=== PATIENT | female | born 1970 | race Caucasian/White ===

== ENCOUNTER 2016-12-28 13:21 | Emergency (ER) | payer MEDICAID ==
[~2016-12-28] VITALS: Ht 160 cm; Wt 85.5 kg
[2016-12-28] MEDS ORDERED: SOY155CA PO (13:53)
[2016-12-28] MEDS ORDERED: SODIUM CHLORIDE FLUSH 10ML SYR IVF ONE (14:00)
[2016-12-28] MEDS ORDERED: ONDANSETRON 2MG/ML, 2ML IVPush ONE (14:00)
[2016-12-28] MEDS ORDERED: SODIUM CHLORIDE 0.9% 1,000ML IVBOLUS ONE (14:00)
[2016-12-28] MEDS ORDERED: ONDANSETRON 2MG/ML, 2ML ONE (14:13)
[2016-12-28] MEDS ORDERED: KETOROLAC 30 MG/1 ML ONE (14:13)
[2016-12-28 14:27] LABS: ASPARTATE AMINO TRANSFERASE 22 U/L (15-37); BLOOD UREA NITROGEN 15 mg/dL (7-18)
[2016-12-28 15:13] LABS: PATH.CAST-FLAG NOT PRESENT; SPERM-FLAG NOT PRESENT; SRC-FLAG NOT PRESENT; XTAL-FLAG NOT PRESENT; YLC-FLAG NOT PRESENT
[2016-12-28] MEDS ORDERED: KETOROLAC 30 MG/1 ML IVPush ONE (15:30)
[2016-12-28 15:52] VITALS: BP 132/84
== END 2016-12-28 15:55 | disposition home or self-care (01) ==
LOC: ED 15:49
DX: N30.90 Cystitis, unspecified without hematuria (principal); R20.9 Unspecified disturbances of skin sensation; R68.83 Chills (without fever); Z90.710 Acquired absence of both cervix and uterus; Z98.51 Tubal ligation status; Z87.891 Personal history of nicotine dependence
CPT/HCPCS: 36415; 80053; 81001; 84439; 84443; 85025; 87086; 93005; 96361; 96374; 96375; 99285; J1885; J2405; J7030

== ENCOUNTER 2019-10-14 06:40 | Emergency (ER) | payer MEDICAID ==
[~2019-10-14] VITALS: Ht 160 cm; Wt 81.2 kg
[~2019-10-14 06:40] MED LIST: SOY155CA PO
[2019-10-14 06:44] VITALS: BP 185/89
[2019-10-14] MEDS ORDERED: KETOROLAC 30 MG/1 ML IM ONE (07:30)
[2019-10-14] MEDS ORDERED: DIAZEPAM 5 MG TABLET PO ONE (07:30)
[2019-10-14] MEDS ORDERED: DIAZEPAM 5 MG TABLET ONE (07:46)
[2019-10-14] MEDS ORDERED: KETOROLAC 30 MG/1 ML ONE (07:46)
--- NOTE | 2019-10-14 07:49 | NUR ---
MEDICATED FOR RIGHT SHOULDER PAIN
[2019-10-14] MEDS ORDERED: OXYcodone/APAP 5/325MG TABLET ONE (08:53)
[2019-10-14] MEDS ORDERED: OXYcodone/APAP 5/325MG TABLET PO ONE (09:00)
--- NOTE | 2019-10-14 09:23 | NUR ---
SOME IMPROVEMENT OF PAIN WITH MEDS AND SLING. PT GIVEN DISCHARGE AND AMBULATED TO DISCHARGE WINDOW, STEADY GAIT
== END 2019-10-14 09:26 | disposition home or self-care (01) ==
LOC: ED 09:15
DX: M25.511 Pain in right shoulder (principal); Z90.710 Acquired absence of both cervix and uterus
CPT/HCPCS: 73030; 96372; 99283; J1885

== ENCOUNTER → 2021-03-04 | Outpatient (CLI) | payer BC, MEDICAID | END | disposition home or self-care (01) | LOC: STAR 11:05 | PROVIDERS: ATTEND Anesthesiology | DX: Z20.822 Contact with and (suspected) exposure to COVID-19 (principal) | CPT/HCPCS: U0003; U0005 ==

== ENCOUNTER 2021-03-09 15:06 | Day surgery (SDC) | payer BC, MEDICAID ==
[~2021-03-09] VITALS: Ht 160 cm; Wt 76.2 kg
[~2021-03-09 15:06] MED LIST changes: +CEFAZOLIN 1,000 MG ONE; +NEOSTIGMINE 1 MG/ML, 10ML ONE; +ONDANSETRON 2MG/ML, 2ML ONE; +PROPOFOL 10 MG/ML, 20ML ONE; +ROCURONIUM 10 MG/ML,10ML ONE; +SUCCINYLCHOLINE 20 MG/ML, 10ML ONE
[2021-03-09] MEDS ORDERED: LACTATED RINGERS 1,000 ML IV SCH (15:30)
[2021-03-09] MEDS ORDERED: CHLORHEXIDINE 15 ML UDC PO ONE (16:00)
[2021-03-09 16:08] LABS: MICROSCOPIC INDICATED
[2021-03-09 16:23] VITALS: BP 147/81
[2021-03-09 16:26] LABS: BASOPHILS % (AUTO) 1 % (0-1); EOSINOPHILS % (AUTO) 3 % (1-7); LYMPHOCYTES % (AUTO) 18 % (22-44); MEAN CORPUSCULAR HGB CONC 33.7 g/dL (32.4-35.8); MEAN PLATELET VOLUME 8.1 fL (7.4-10.4); MONOCYTES % (AUTO) 7 % (2-9); NEUTROPHILS % (AUTO) 72 % (42-75); PLATELET COUNT 280 x10^3/uL (130-400); RED BLOOD COUNT 4.42 x10^6/uL (3.82-5.3); RED CELL DISTRIBUTION WIDTH 13.3 % (9.6-15.2)
[2021-03-09 16:33] LABS: INTERNATIONAL NORMALIZED RATIO 0.93 (0.93-1.1); PROTHROMBIN TIME 9.9 Seconds (9.6-11.5)
[2021-03-09 16:34] LABS: ANION GAP 5 mmol/L (5-15); CALCIUM 9.6 mg/dL (8.5-10.1); CHLORIDE 106 mmol/L (98-107); CREATININE 0.83 mg/dL (0.55-1.02)
[2021-03-09] MEDS ORDERED: HYDR1TAB16 PO (16:34)
[2021-03-09] MEDS ORDERED: antiinflammatory PO (16:34)
[2021-03-09] MEDS ORDERED: TAMS-11 PO (16:34)
[2021-03-09] MEDS ORDERED: OMNIPAQUE 350 MG/ML, 50 ML BOTTLE ONE (16:51)
[2021-03-09] MEDS ORDERED: FENTANYL PF 250 MCG/5ML ONE (16:59)
[2021-03-09] MEDS ORDERED: MIDAZOLAM 1 MG/ML, 2ML ONE (16:59)
[2021-03-09] MEDS ORDERED: DIAZEPAM 5 MG/ML, 2ML IVPush PRN (18:00)
[2021-03-09] MEDS ORDERED: HYDROmorphone 1 MG/ML, 1ML INJ IVPush PRN (18:00)
[2021-03-09] MEDS ORDERED: hydrALAzine 20 MG/ML, 1ML IV PRN (18:00)
[2021-03-09] MEDS ORDERED: LORazepam 2 MG/ML, 1ML IVPush PRN (18:00)
[2021-03-09] MEDS ORDERED: PROMETHAZINE 25 MG/ML, 1ML IVPush PRN (18:00)
[2021-03-09] MEDS ORDERED: FENTANYL PF 100 MCG/2ML IV PRN (18:00)
[2021-03-09] MEDS ORDERED: MIDAZOLAM 1 MG/ML, 2ML IV PRN (18:00)
[2021-03-09] MEDS ORDERED: ONDANSETRON 2MG/ML, 2ML IVPush PRN (18:00)
[2021-03-09] MEDS ORDERED: LABETALOL 5MG/ML, 20ML IV PRN (18:00)
[2021-03-09] MEDS ORDERED: ALBUTEROL SULFATE 2.5 MG/3 ML NPPB PRN (18:00)
[2021-03-09] MEDS ORDERED: MEPERIDINE/PF 25MG/0.5ML IVPush PRN (18:00)
[2021-03-09] MEDS ORDERED: PROMETHAZINE 12.5 MG SUPP PR PRN (18:00)
[2021-03-09] MEDS ORDERED: DIPHENHYDRAMINE 50 MG/ML, 1ML IVPush PRN ×2 (18:00)
[2021-03-09] MEDS ORDERED: ACETAMINOPHEN 325 MG TABLET PO PRN (18:00)
[2021-03-09] MEDS ORDERED: EPHEDRINE 50 MG/ML, 1ML IVPush PRN (18:00)
[2021-03-09] MEDS ORDERED: FENTANYL PF 100 MCG/2ML ONE (18:20)
[2021-03-09] MEDS ORDERED: OXYcodone 5 MG/5 ML ORAL.SOL UDC ONE (18:21)
[2021-03-09] MEDS: OXYcodone 5 MG/5 ML ORAL.SOL UDC PO PRN ×2 (18:23→19:23)
[2021-03-09] MEDS ORDERED: PROMETHAZINE 25 MG/ML, 1ML ONE (18:28)
[2021-03-09] MEDS ORDERED: PLEASE ENTER ALLERGIES MC SCH (18:30)
== END 2021-03-09 20:30 | disposition home or self-care (01) ==
LOC: OR 15:06
PROVIDERS: ATTEND Urology
DX: N20.1 Calculus of ureter (principal); N13.5 Crossing vessel and stricture of ureter without hydronephrosis; G47.33 Obstructive sleep apnea (adult) (pediatric); Z79.01 Long term (current) use of anticoagulants; Z79.1 Long term (current) use of non-steroidal anti-inflammatories (NSAID); Z79.891 Long term (current) use of opiate analgesic; Z79.899 Other long term (current) drug therapy; Z87.442 Personal history of urinary calculi; Z87.891 Personal history of nicotine dependence; Z88.5 Allergy status to narcotic agent
CPT/HCPCS: 36415; 52353; 74018; 80048; 81001; 82360; 85025; 85610; 87086; 88300; C1769; J2250; J2550; J3010; 76000; J0690; J2405; J2704; J2710; Q9967; J0330